=== PATIENT | male | born 1950 | race African-American/Black ===

== ENCOUNTER → 2017-03-19 | Outpatient (CLI) | payer OTHER ==
--- NOTE | ~2017-03-19 | US5 ---
[facility] A Service of [facility] & [facility] RADIOLOGY TEXT RESULTS PATIENT: LAVELL LLAMAS LOCATION: [facility] : 50 UNIT #: [id number] AGE: [address]: Que Landers MD SEX: M ORDER DR: [id number] [facility] [address] [place], [place] [address] [id number] O MR#: [id number] Acc #: [id number] NAME: LAVELL LLAMAS : 1950 SEX: M STUDY DATE/TIME: 03/19/2017 11:09 UNIT: [facility] ROOM: STUDY DESCRIPTION: US Abdominal Complete Attending Physician: Que Landers III, M.D. Referring Physician: Que Landers III, M.D. Ordering Physician: Que Landers III, M.D. Primary Care Physician: Wong Mary M.D. MEDICAL IMAGING REPORT This report is preliminary unless electronic signature is present EXAM Abdominal ultrasound INDICATIONS Hepatitis C. This is a screening examination. Patient's most recent CT was in February 2016. TECHNIQUE Negron-scale, color Doppler and spectral Doppler waveform analysis was performed through the abdomen. FINDINGS The net maker measures the proximal abdominal aorta measuring up to 3.7 x 3.4 cm, previously it was measured at 2.4 x 2.3 cm. This is obviously significantly larger than on the prior study and may be due to differences in filtration operator technique; however, I would suggest further evaluation with CT. There is limited visualization of the pancreas. There is coarsening of hepatic echotexture, which has been seen on prior examinations. I do not see any definite focal hepatic lesions and there is no intra- or extrahepatic biliary dilatation. Both kidneys are somewhat echogenic in appearance. This was present on the prior examination. While the kidneys are normal in size and I do not see any cortical thinning, the possibility of some underlying chronic medical renal disease is not excluded. Correlation with laboratory values is recommended. No stones or sludge are seen within the gallbladder and there is no gallbladder wall thickening or pericholecystic fluid. Spleen probably contains some calcified granulomata but is otherwise unremarkable. IMPRESSION 1. Coarsening of hepatic echotexture probably not significantly changed when compared to the exam from February 2016. 2. Balance Staff Inspector measures the abdominal aorta proximally at up to 3.7 x 3.4 cm, which is significantly larger than on the prior study when STS. [facility] A Service of [facility] RADIOLOGY TEXT RESULTS PATIENT: LAVELL LLAMAS LOCATION: [facility] : 50 UNIT #: [id number] AGE: [address]: Que Landers MD SEX: M ORDER DR: it measured 2.4 x 2.3 cm. This may simply be related to differences in filtration operator technique; however, I would suggest further evaluation with dedicated CT angiogram of the abdomen and pelvis. 3. Both kidneys are somewhat echogenic in appearance. This was present on the prior examination. Kidneys themselves are normal in size with no cortical thinning identified. Some underlying chronic medical renal disease, however, is not excluded. Correlation with laboratory values is recommended. Dictated by... Solange Viera M.D. THIS IS AN ELECTRONICALLY VERIFIED REPORT Solange Viera M.D. at 03/22/2017 5:36 PM AFF/psc TD: 03/21/2017 19:24 JOB #: [id number] MEDICAL IMAGING REPORT Page 1 of 1 COPY
== END | disposition home or self-care (01) ==
LOC: CGUS 10:18
DX: B18.2 Chronic viral hepatitis C (principal); K76.89 Other specified diseases of liver
CPT/HCPCS: 76700